=== PATIENT | female | born 1955 | race Caucasian/White ===

== ENCOUNTER 2017-06-12 09:36 | Day surgery (SDC) | payer BC ==
[~2017-06-12 09:36] MED LIST: Lactated Ringers 1,000 ML IV SCH; Lidocaine 1% 4 ML ONE; Lidocaine 1%/Sod Bicarbonate in NS 8.4% 1 ML Syringe PRN; Midazolam 1 MG/ML 2 ML SDV ONE; Ondansetron 4 MG/2 ML SDV ONE; Propofol 200 MG/20 ML SDV ONE; Rocuronium 50 MG/5 ML Vial ONE; Sodium Chloride 0.9% 10 ML Syringe FLUSH PRN; fentaNYL 250 MCG/5 ML SDV ONE
--- NOTE | 2017-06-12 11:05 | PCM.PREANE ---
Preanesthetic Assessment - Anesthesia/Transfusion/Family Hx Anesthesia History: Prior Anesthesia Without Reaction Family History of Anesthesia Reaction: No Transfusion History: Prior Transfusion Without Reaction - Review of Systems General: No Symptoms Pulmonary: No Symptoms Cardiovascular: No Symptoms Gastrointestinal: Abdominal Pain (because of gall bladder) Neurological: No Symptoms, Other (headache today above left eye) Other: Reports: Thyroid Problems, Sinus Problem (nasal surgery), Depression, Anxiety - Physical Assessment NPO Status Date: 06/11/17 (sip with pills this am) NPO Status Time: 19:00 O2 Sat by Pulse Oximetry: 94 Respiratory Rate: 16 Vital Signs: Last Vital Signs Temp 97.8 F 06/12/17 09:40 Pulse 72 06/12/17 09:40 Resp 16 06/12/17 09:40 BP 116/76 06/12/17 09:40 Pulse Ox 94 L 06/12/17 09:40 Height: 5 ft 5 in Weight: 81.647 kg ASA Class: 2 Mental Status: Alert & Oriented x3 Airway Class: Mallampati = 1 Dentition: Reports: Normal Dentition Thyro-Mental Finger Breadths: 3 Mouth Opening Finger Breadths: 3 ROM/Head Extension: Full Lungs: Clear to Auscultation, Normal Respiratory Effort Cardiovascular: Regular Rate, Regular Rhythm - Lab Values: 06/08 Hgb 14.2 P;t 247 Cr 0.8 BUN 10 Lytes WNL HGBHC1 6.1 - Imaging/EKG Impressions: 06/09/17 EKG SR 63 - Allergies Allergies/Adverse Reactions: Allergies Allergy/AdvReac Type Severity Reaction Status Date / Time No Known Allergies Allergy Verified 06/09/17 10:37 - Blood Blood Available: No - Acknowledgements Anesthesia Type Planned: General Anesthesia Pt an Appropriate Candidate for the Planned Anesthesia: Yes Alternatives and Risks of Anesthesia Discussed w Pt/Guardian: Yes Pt/Guardian Understands and Agrees with Anesthesia Plan: Yes PreAnesthesia Questionnaire HEENT History: Reports: Allergic Rhinitis Cardiovascular History: Reports: High Cholesterol Respiratory History: Reports: Asthma, Bronchitis, Recurrent Gastrointestinal History: Reports: Cholelithiasis, Gastritis, GERD, Other (See Below) Other Gastrointestinal History: Biliary colic, diarrhea, abdominal pain, internal hemorrhoids, throbosed external hemorrhoids Genitourinary History: Reports: Urinary Incontinence, UTI, Recurrent Other Genitourinary History: Dysuria, overactive bladder 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 (See Below) Other OB/BYN History: Pelvic pain Musculoskeletal History: Reports: Other (See Below) Other Musculoskeletal History: Right wrist pain, right fibula fracture, right ankle sprain Neurological History: Reports: None Psychiatric History: Reports: Bipolar Endocrine/Metabolic History: Reports: Hypothyroidism, Obesity/BMI 30+, Other ( See Below) Other Endocrine/Metabolic History: Elevated fasting glucose Hematologic History: Reports: None Immunologic History: Reports: None Oncologic (Cancer) History: Reports: None Dermatologic History: Reports: None - Infectious Disease History Infectious Disease History: Reports: C-Difficile - Past Surgical History Head Surgeries/Procedures: Reports: None HEENT Surgical History: Reports: Cataract Surgery, Naso-Sinus Surgery Cardiovascular Surgical History: Reports: None Respiratory Surgical History: Reports: None GI Surgical History: Reports: Colonoscopy Female Surgical History: Reports: Tubal Ligation Endocrine Surgical History: Reports: None Neurological Surgical History: Reports: None Dermatological Surgical History: Reports: None - SUBSTANCE USE Smoking Status *Q: Never Smoker Tobacco Use Within Last Twelve Months: No Second Hand Smoke Exposure: No Days Per Week of Alcohol Use: 0 Recreational Drug Use History: No - HOME MEDS Home Medications: Home Meds Cholecalciferol (Vitamin D3) [Vitamin D3] 1,000 units PO DAILY 05/28/14 [History ] FLUoxetine [PROzac] 30 mg PO DAILY 05/28/14 [History] Simvastatin [Zocor] 20 mg PO BEDTIME 05/28/14 [History] lamoTRIgine 100 mg PO DAILY 05/28/14 [History] Cranberry Conc/Ascorbic Acid [Cranberry Urinary Comfort Sfgl] 2 cap PO DAILY [History] Esomeprazole Magnesium [Nexium 24Hr] 20 mg PO DAILY 10/11/16 [History] Fluticasone Propionate 1 spray NASBOTH ASDIRECTED 10/11/16 [History] Loratadine [Claritin] 10 mg PO DAILY 10/11/16 [History] Melatonin 3 mg PO BEDTIME 10/11/16 [History] Mirabegron [Myrbetriq] 25 mg PO DAILY 10/11/16 [History] Multivitamin [Multivitamins] 2 tab PO DAILY 10/11/16 [History] Albuterol Sulfate [Proair Respiclick] 1 - 2 puff IH Q4H PRN 06/09/17 [History] Ipratropium/Albuterol Sulfate [Iprat-Albut 0.5-3(2.5) mg/3 ml] 3 ml IH Q6H PRN 06/09/17 [History] Levothyroxine Sodium [Levoxyl] 75 mcg PO DAILY 06/09/17 [History] Montelukast Sodium [Singulair] 10 mg PO DAILY 06/09/17 [History] - CURRENT (IN HOUSE) MEDS Current Meds: Current Medications Lactated Ringer's (Ringers, Lactated) 1,000 mls @ 125 mls/hr IV ASDIRECTED USMAN Stop: 06/12/17 23:00 Last Admin: 06/12/17 10:10 Dose: 125 mls/hr Lidocaine/Sodium Bicarbonate (Buffered Lidocaine 1% In Ns 8.4%) 0.25 ml .XX ONETIME PRN PRN Reason: Prior to IV Start Stop: 06/12/17 18:00 Last Admin: 06/12/17 10:09 Dose: 0.25 ml Sodium Chloride (Saline Flush) 10 ml FLUSH ASDIRECTED PRN PRN Reason: Keep Vein Open Stop: 06/12/17 18:00 Discontinued Medications Fentanyl (Sublimaze) Confirm Administered Dose 250 mcg .ROUTE .STK-MED ONE Stop: 06/12/17 08:07 Lidocaine HCl (Xylocaine-Mpf 1%) Confirm Administered Dose 4 mls @ as directed .ROUTE .STK-MED ONE Stop: 06/12/17 08:07 Midazolam HCl (Versed 1 Mg/Ml) Confirm Administered Dose 2 mg .ROUTE .STK-MED ONE Stop: 06/12/17 08:07 Ondansetron HCl (Zofran) Confirm Administered Dose 4 mg .ROUTE .STK-MED ONE Stop: 06/12/17 08:07 Propofol (Diprivan 20 Ml) Confirm Administered Dose 200 mg .ROUTE .STK-MED ONE Stop: 06/12/17 08:07 Rocuronium [place] (Zemuron) Confirm Administered Dose 50 mg .ROUTE .STK-MED ONE Stop: 06/12/17 08:07
[2017-06-12] MEDS ORDERED: Bupivacaine 0.5%/EPINEPHrine 1:200,000 50 ML MDV ONE (11:28)
[2017-06-12] MEDS ORDERED: Lidocaine 1% with EPINEPHrine 1:100,000 20 ML MDV ONE (11:28)
[2017-06-12] MEDS ORDERED: fentaNYL 100 MCG/2 ML SDV ONE (12:05)
[2017-06-12] MEDS ORDERED: fentaNYL 100 MCG/2 ML SDV IVPUSH ONE (12:08)
[2017-06-12] MEDS ORDERED: Metoclopramide 10 MG/2 ML SDV ONE (13:27)
[2017-06-12] MEDS ORDERED: Neostigmine Methylsulfate 10 MG/10 ML MDV ONE (13:27)
[2017-06-12] MEDS ORDERED: Ondansetron 4 MG/2 ML SDV ONE (13:27)
[2017-06-12] MEDS ORDERED: Glycopyrrolate 0.2 MG/ML SDV ONE (13:27)
[2017-06-12] MEDS ORDERED: Lactated Ringers 1,000 ML ONE (13:30)
[2017-06-12] MEDS ORDERED: Propofol 200 MG/20 ML SDV ONE (13:31)
[2017-06-12] MEDS ORDERED: Haloperidol Lactate 5 MG/ML SDV IVPUSH ONE (13:51)
[2017-06-12] MEDS ORDERED: fentaNYL 100 MCG/2 ML SDV IVPUSH PRN (13:51)
--- NOTE | 2017-06-12 13:53 | PCM.POSTAN ---
POST ANESTHESIA ASSESSMENT - MENTAL STATUS Mental Status: Somnolent - VITAL SIGNS Pulse Rate: 97 SaO2: 94 Resp Rate: 11 Blood Pressure: 134/60 Temperature: 97.1 C - RESPIRATORY Respiratory Status: Respiratory Rate WNL, Airway Patent, O2 Saturation Stable, Supplemental Oxygen - CARDIOVASCULAR CV Status: Pulse Rate WNL, Blood Pressure Stable - GASTROINTESTINAL GI Status: No Symptoms - PAIN Pain Score: 0 - POST OP HYDRATION Hydration Status: Adequate & Stable
--- NOTE | 2017-06-12 13:55 | PCM.OPNOTE ---
- General Post-Op/Procedure Note Date of Surgery/Procedure: 06/12/17 Operative Procedure(s): Laparoscopic gallbladder biopsy Findings: Hard, densely scarred contracted gallbladder, and contracted gallbladder bed with dense adherence of the omentum to the body of the gallbladder, suspicious for gallbladder carcinoma. Adhesions between the sigmoid and omentum in the left lower quadrant obscuring visualization of the ovaries. Pre Op Diagnosis: Biliary colic secondary to chronic cholecystitis Post-Op Diagnosis: Chronic cholecystitis Primary Surgeon: Dandy Nye Pathology: Biopsy of the dome of gallbladder EBL in mLs: 2 Complications: None Condition: Good Free Text/Narrative:: After adequate general endotracheal tube anesthesia was obtained the patient's abdomen was prepped and draped sterilely for a laparoscopic cholecystectomy. After local analgesia was given a supraumbilical incision was made with a 15 blade through the skin into the subcutaneous tissues. This incision was deepened with Metzenbaum scissors to the linea alba just above the umbilicus. The linea alba was sharply divided for about 1.5 cm to allow insertion of the 12 mm camera port. CO2 pneumoperitoneum was obtained after safe entry. Exploration revealed the findings above. I placed 2--5 mm working ports next with one in the subxiphoid area and one below the subcostal margin. I used the alligator forceps and grasped a portion of the dome of the gallbladder which was quite firm and then used the hot Endo scissors to biopsy the gallbladder fundus. The specimen was placed in a bag and removed through the umbilicus. The biopsy area was hemostatic. There was no bile leak from the biopsy site. I was concerned about the possibility of this being a gallbladder cancer, because of its firmness and the stellate-like contracted nature of the gallbladder bed along with the dense adherence of the omentum and possibly colon to the gallbladder I then tried to inspect the pelvic organs per the patient's request but was unable to safely do so because of the adhesions between the sigmoid colon and the omentum to the abdominal wall and pelvis. There were no obvious metastatic peritoneal implants seen. I then decannulated the abdomen under direct vision with no bleeding from the port sites. The camera port site was closed with an 0 Vicryl [id number] suture. Additional local analgesia was given at each port site. The subcutaneous tissues and skin were closed with Vicryl as well. Steri-Strips and gauze were used for the dressing. Road Traffic Controller photographs were taken for the patient and for the medical record. There were no procedural complications.
[2017-06-12 16:22] VITALS: BP 125/79
--- NOTE | 2017-06-13 07:21 | PCM48HPAN ---
Post Anesthesia Note - EVALUATION WITHIN 48HRS OF ANESTHETIC Vital Signs in Normal Range: Yes Patient Participated in Evaluation: Yes Respiratory Function Stable: Yes Airway Patent: Yes Cardiovascular Function Stable: Yes Hydration Status Stable: Yes Pain Control Satisfactory: Yes Nausea and Vomiting Control Satisfactory: Yes Mental Status Recovered: Yes - COMMENTS/OBSERVATIONS Free Text/Narrative:: Patient is comfortable with no apparent anesthesia related complications at this time.
== END 2017-06-12 16:18 | disposition home or self-care (01) ==
LOC: JD.SDS 09:36
PROVIDERS: ATTEND Surgery
DX: C23 Malignant neoplasm of gallbladder (principal); K81.1 Chronic cholecystitis; J45.909 Unspecified asthma, uncomplicated; F31.9 Bipolar disorder, unspecified; K21.9 Gastro-esophageal reflux disease without esophagitis; E03.9 Hypothyroidism, unspecified; Z79.899 Other long term (current) drug therapy; Z98.890 Other specified postprocedural states
CPT/HCPCS: 47579; J2250; J2405; J2710; J2765; J3010; J3490; J7120; 00790; J2704

== ENCOUNTER 2017-09-10 18:10 | Emergency (ER) | payer BC ==
[2017-09-10 18:24] VITALS: BP 167/84
[2017-09-10] MEDS ORDERED: Sodium Chloride 0.9% 1,000 ML IV ONE (19:23)
[2017-09-10] MEDS ORDERED: Ondansetron 4 MG/2 ML SDV IVPUSH ONE (20:15)
--- NOTE | 2017-09-10 20:19 | EDM.PDOC ---
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 She states that she has had nausea on and off since May, and is currently on 4 medications for it prescribed by Dr. Rowe. She states that she had dry heaves on 09/04/2017, and 09/05/2017. She saw Dr. Rowe on 09/06/2017, and was told to go to the ER for IV fluid if her symptoms continued. She went to the [facility] on , 2016 and 09/08/2017, where she received IV fluid. She states that she did not have any dry heaves yesterday or today, however, she has had dizziness both yesterday and today, worse if she is upright. No recent fever, constipation, diarrhea, or urinary symptoms. She states that she has had similar symptoms, less severe, many times in the past. The patient received an influenza vaccine in June 2017. The patient's PCP is Candy Farah. - Related Data Allergies Allergy/AdvReac Type Severity Reaction Status Date / Time No Known Allergies Allergy Verified 09/10/17 18:18 Home Meds: Home Meds Cholecalciferol (Vitamin D3) [Vitamin D3] 1,000 units PO DAILY 05/28/14 [History ] FLUoxetine [PROzac] 30 mg PO DAILY 05/28/14 [History] Simvastatin [Zocor] 20 mg PO BEDTIME 05/28/14 [History] lamoTRIgine 100 mg PO DAILY 05/28/14 [History] Cranberry Conc/Ascorbic Acid [Cranberry Urinary Comfort Sfgl] 2 cap PO DAILY [History] Esomeprazole Magnesium [Nexium 24Hr] 20 mg PO DAILY 10/11/16 [History] Fluticasone Propionate 1 spray NASBOTH ASDIRECTED 10/11/16 [History] Loratadine [Claritin] 10 mg PO DAILY 10/11/16 [History] Melatonin 3 mg PO BEDTIME 10/11/16 [History] Mirabegron [Myrbetriq] 25 mg PO DAILY 10/11/16 [History] Multivitamin [Multivitamins] 2 tab PO DAILY 10/11/16 [History] Albuterol Sulfate [Proair Respiclick] 1 - 2 puff IH Q4H PRN 06/09/17 [History] Ipratropium/Albuterol Sulfate [Iprat-Albut 0.5-3(2.5) mg/3 ml] 3 ml IH Q6H PRN 06/09/17 [History] Levothyroxine Sodium [Levoxyl] 75 mcg PO DAILY 06/09/17 [History] Montelukast Sodium [Singulair] 10 mg PO DAILY 06/09/17 [History] Past Medical History HEENT History: Reports: Allergic Rhinitis Cardiovascular History: Reports: High Cholesterol Respiratory History: Reports: Asthma Gastrointestinal History: Reports: GERD Genitourinary History: Reports: Urinary Incontinence (stress incontinence) Musculoskeletal History: Reports: Fracture (right fibula) Psychiatric History: Reports: Anxiety, Bipolar, Depression Endocrine/Metabolic History: Reports: Hypothyroidism, Obesity/BMI 30+ Oncologic (Cancer) History: Reports: Other (See Below) (Gallbladder, stage IV) - Infectious Disease History Infectious Disease History: Reports: C-Difficile - Past Surgical History HEENT Surgical History: Reports: Cataract Surgery, Naso-Sinus Surgery (deviated septum), Oral Surgery ([place] teeth extraction) Cardiovascular Surgical History: Reports: Other (See Below) (Left Port-A-Cath) GI Surgical History: Reports: Colonoscopy, Other (See Below) (Exploratory laparoscopy) Female Surgical History: Reports: Tubal Ligation Social & Family History - Tobacco Use Smoking Status *Q: Never Smoker Second Hand Smoke Exposure: No - Caffeine Use Caffeine Use: Reports: None - Alcohol Use Alcohol Use History: No Days Per Week of Alcohol Use: 0 - Recreational Drug Use Recreational Drug Use: No - Living Situation & Occupation Living situation: Reports: , with Significant Other (Boyfriend) Occupation: Retired ED ROS GENERAL - Review of Systems Review Of Systems: See Below Constitutional: Reports: No Symptoms. Denies: Fever HEENT: Reports: No Symptoms Respiratory: Reports: No Symptoms Cardiovascular: Reports: No Symptoms Endocrine: Reports: No Symptoms GI/Abdominal: Reports: Nausea. Denies: Constipation, Diarrhea : Reports: No Symptoms. Denies: Dysuria Musculoskeletal: Reports: No Symptoms Skin: Reports: No Symptoms Neurological: Reports: Dizziness Psychiatric: Reports: No Symptoms Hematologic/Lymphatic: Reports: No Symptoms Immunologic: Reports: No Symptoms ED EXAM, DIZZINESS - Physical Exam Exam: See Below Exam Limited By: No Limitations General Appearance: Alert, WD/WN, No Apparent Distress Eye Exam: Bilateral Eye: Normal Inspection Ears: Normal External Exam, Normal Canal, Hearing Grossly Normal, Normal TMs Nose: Normal Inspection, Normal Mucosa, No Blood Throat/Mouth: Normal Inspection, Normal Lips, Normal Voice, No Airway Compromise Head Exam: Atraumatic, Normocephalic Neck: Normal Inspection, Full Range of Motion Respiratory/Chest: No Respiratory Distress, Lungs Clear, Normal Breath Sounds, No Accessory Muscle Use Cardiovascular: Normal Peripheral Pulses, Regular Rate, Rhythm, No Gallop, No JVD, No Murmur, No Rub GI/Abdominal: Normal Bowel Sounds, Soft, Non-Tender, No Organomegaly, No Distention, No Abnormal Bruit, No Mass, Other (Obese) (Female) Exam: Deferred Rectal (Female) Exam: Deferred Neurological: Alert, CN II-XII Intact, No Motor/Sensory Deficits, Oriented x 3 Back Exam: Normal Inspection, Full Range of Motion, NT Extremities: Normal Inspection, Normal Range of Motion, No Pedal Edema, Normal Capillary Refill Psychiatric: Normal Affect, Anxious Skin Exam: Warm, Dry, Intact, Normal Color, No Rash EKG INTERPRETATION EKG Date: 09/10/17 Time: 19:31 Rhythm: NSR Rate (Beats/Min): 87 [place]: Normal P-Wave: Present QRS: Normal ST-T: Normal QT: Normal Comparison: No Change (06/09/2017) Course - Vital Signs Last Recorded V/S: Last Vital Signs Temp 36.2 C 09/10/17 18:18 Pulse 94 09/10/17 18:18 Resp 16 09/10/17 18:18 BP 167/84 H 09/10/17 18:18 Pulse Ox 97 09/10/17 18:18 Orthostatic Blood Pressure [ 156/94 Standing] Orthostatic Blood Pressure [ 154/89 Sitting] Orthostatic Blood Pressure [ 136/82 Supine] - Orders/Labs/Meds Orders: Active Orders 24 hr Category Date Time Status EKG Documentation Completion [RC] STAT Care 09/10/17 19:21 Active Orthostatic Vital Signs [RC] STAT Care 09/10/17 19:21 Active Ang Chest [CT] Stat Exams 09/10/17 20:17 Taken CULTURE BLOOD [BC] Stat Lab 09/10/17 19:45 Received CULTURE BLOOD [BC] Stat Lab 09/10/17 19:50 Received Blood Culture x2 Reflex Set [OM.PC] Stat Oth 09/10/17 19:23 Ordered Labs: Laboratory Tests 09/10/17 09/10/17 09/10/17 Range/Units 16:46 16:46 16:46 WBC 6.37 (3.98-10.04) K/mm3 RBC 3.44 L (3.98-5.22) M/mm3 Hgb 10.4 L (11.2-15.7) gm/L Hct 31.9 L (34.1-44.9) % MCV 92.7 (79.4-94.8) fl MCH 30.2 (25.6-32.2) pg MCHC 32.6 (32.2-35.5) g/dl RDW Std Deviation 49.6 H (36.4-46.3) fL Plt Count 117 L (182-369) K/mm3 MPV 10.8 (9.4-12.3) fl Neutrophils % (Manual) 59 (40-60) % Band Neutrophils % 0 (0-10) % Lymphocytes % (Manual) 40 (20-40) % Atypical Lymphs % 0 % Monocytes % (Manual) 1 L (2-10) % Eosinophils % (Manual) 0 L (0.7-5.8) % Basophils % (Manual) 0 L (0.1-1.2) Platelet Estimate Decreased Plt Morphology Comment See note Anisocytosis 1+ slight Macrocytosis 1+ slight Ovalocytes 1+ slight RBC Morph Comment Not Reportable PT 9.7 (8.0-13.0) SECONDS INR 0.90 APTT 30 (22-36) SECONDS D-Dimer, Quantitative 0.88 H (0.19-0.59) mg/L Sodium 143 (136-145) mEq/L Potassium 3.9 (3.5-5.1) mEq/L Chloride 104 (98-107) mEq/L Carbon Dioxide 30 (21-32) mEq/L Anion Gap 12.9 (5-15) BUN 19 H (7-18) mg/dL Creatinine 0.8 (0.55-1.02) mg/dL Est Cr Clr Drug Dosing 64.77 mL/min Estimated GFR (MDRD) > 60 (>60) mL/min BUN/Creatinine Ratio 23.8 H (14-18) Glucose 123 H (80-115) mg/dL Calcium 8.1 L (8.5-10.1) mg/dL Magnesium 1.7 L (1.8-2.4) mg/dl Total Bilirubin 0.1 L (0.2-1.0) mg/dL AST 8 L (15-37) U/L ALT 24 (14-59) U/L Alkaline Phosphatase 62 (46-116) U/L Troponin I < 0.017 (0.00-0.056) ng/mL Total Protein 5.9 L (6.4-8.2) g/dl Albumin 3.1 L (3.4-5.0) g/dl Globulin 2.8 gm/dL Albumin/Globulin Ratio 1.1 (1-2) Urine Color (Yellow) Urine Appearance (Clear) Urine pH (5.0-8.0) Ur Specific [place] (1.005-1.030) Urine Protein (Negative) Urine Glucose (UA) (Negative) Urine Ketones (Negative) Urine Occult Blood (Negative) Urine Nitrite (Negative) Urine Bilirubin (Negative) Urine Urobilinogen (0.2-1.0) Ur Leukocyte Esterase (Negative) Urine RBC (0-5) /hpf Urine WBC (0-5) /hpf Ur Epithelial Cells (0-5) /hpf Urine Bacteria (FEW) /hpf Urine Mucus (FEW) /hpf 09/10/17 Range/Units 19:40 WBC (3.98-10.04) K/mm3 RBC (3.98-5.22) M/mm3 Hgb (11.2-15.7) gm/L Hct (34.1-44.9) % MCV (79.4-94.8) fl MCH (25.6-32.2) pg MCHC (32.2-35.5) g/dl RDW Std Deviation (36.4-46.3) fL Plt Count (182-369) K/mm3 MPV (9.4-12.3) fl Neutrophils % (Manual) (40-60) % Band Neutrophils % (0-10) % Lymphocytes % (Manual) (20-40) % Atypical Lymphs % % Monocytes % (Manual) (2-10) % Eosinophils % (Manual) (0.7-5.8) % Basophils % (Manual) (0.1-1.2) Platelet Estimate Plt Morphology Comment Anisocytosis Macrocytosis Ovalocytes RBC Morph Comment PT (8.0-13.0) SECONDS INR APTT (22-36) SECONDS D-Dimer, Quantitative (0.19-0.59) mg/L Sodium (136-145) mEq/L Potassium (3.5-5.1) mEq/L Chloride (98-107) mEq/L Carbon Dioxide (21-32) mEq/L Anion Gap (5-15) BUN (7-18) mg/dL Creatinine (0.55-1.02) mg/dL Est Cr Clr Drug Dosing mL/min Estimated GFR (MDRD) (>60) mL/min BUN/Creatinine Ratio (14-18) Glucose (80-115) mg/dL Calcium (8.5-10.1) mg/dL Magnesium (1.8-2.4) mg/dl Total Bilirubin (0.2-1.0) mg/dL AST (15-37) U/L ALT (14-59) U/L Alkaline Phosphatase (46-116) U/L Troponin I (0.00-0.056) ng/mL Total Protein (6.4-8.2) g/dl Albumin (3.4-5.0) g/dl Globulin gm/dL Albumin/Globulin Ratio (1-2) Urine Color Light yellow (Yellow) Urine Appearance Clear (Clear) Urine pH 7.0 (5.0-8.0) Ur Specific [place] 1.015 (1.005-1.030) Urine Protein Negative (Negative) Urine Glucose (UA) Negative (Negative) Urine Ketones Negative (Negative) Urine Occult Blood Negative (Negative) Urine Nitrite Negative (Negative) Urine Bilirubin Negative (Negative) Urine Urobilinogen 0.2 (0.2-1.0) Ur Leukocyte Esterase Negative (Negative) Urine RBC Not seen (0-5) /hpf Urine WBC 0-5 (0-5) /hpf Ur Epithelial Cells 0-5 (0-5) /hpf Urine Bacteria Not seen (FEW) /hpf Urine Mucus Not seen (FEW) /hpf Meds: Medications Discontinued Medications Generic Name Dose Route Start Last Admin Trade Name Freq PRN Reason Stop Dose Admin Heparin Sodium (Porcine) 500 units 09/10/17 22:25 09/10/17 22:29 Heparin Lock Flush 100 Units/Ml FLUSH 09/10/17 22:26 500 units ASDIRECTED ONE Administration Sodium Chloride 1,000 mls @ 999 mls/hr 09/10/17 19:23 09/10/17 20:04 Normal Saline IV 09/10/17 20:23 999 mls/hr ONETIME ONE Administration Sodium Chloride 100 mls @ 80 mls/hr 09/10/17 21:00 09/10/17 21:17 Normal Saline IV 80 mls/hr ASDIRECTED USMAN Administration Iopamidol 100 ml 09/10/17 20:46 09/10/17 21:17 Isovue-370 (76%) IVPUSH 09/10/17 20:47 60 ml ONETIME ONE Administration Ondansetron HCl 4 mg 09/10/17 20:15 09/10/17 20:25 Zofran IVPUSH 09/10/17 20:16 4 mg ONETIME ONE Administration Sodium Chloride 10 ml 09/10/17 20:46 09/10/17 21:16 Saline Flush FLUSH 10 ml ONETIME PRN Administration IV FLUSH - Re-Assessments/Exams Free Text/Narrative Re-Assessment/Exam: 09/10/17 20:17 The patient is not orthostatic. Her D-dimer has returned mildly elevated at 0.88. Her renal function is normal. I will order a CT angiogram of the chest to evaluate for PE. 09/10/17 22:09 CT angiogram of the chest is read by [facility] as "Normal chest CTA. No pulmonary embolism." 09/10/17 22:17 Test results discussed with the patient and her significant other. Thomas's workup is unremarkable, and does not explain the cause of the patient's dizziness. I suspect that the patient is suffering from anxiety. The patient states that she will be following up with her Oncologist, Dr. Rowe, tomorrow. I encouraged her to take thomas's test results with her. Departure - Departure Time of Disposition: 22:18 Disposition: Home, Self-Care 01 Condition: Good Clinical Impression: Dizziness of unknown cause - Discharge Information Instructions: Dizziness Referrals: Candy Farah PA [Primary Care Provider] - Leslie Rowe MD [Ordering Only Provider] - Forms: ED Department Discharge Additional Instructions: You were seen in the emergency room for dizziness and recurrent nausea. Workup in the ER included blood work, 2 sets of blood cultures, a urinalysis, an ECG, an influenza swab, a CT angiogram of your chest, and positional blood pressure checks. Your entire workup was unremarkable. You do not have an infection. You are not severely anemic. You do not have any electrolyte abnormalities. You are not dehydrated or intravascularly depleted. You have not had a heart attack, and your ECG was normal. You do not have a blood clot in your lungs. The cause of your dizziness is not known, but is MOST LIKELY due to anxiety. Continue to take your usual medications as prescribed. Follow-up with your Oncologist, Dr. Rowe, at your previously scheduled appointment tomorrow, 09/11/2017. We recommend that you bring these discharge instructions with you to your appointment. If any other problems, please do not hesitate to return to the ER. - My Orders Last 24 Hours: My Active Orders 09/10/17 19:21 EKG Documentation Completion [RC] STAT Orthostatic Vital Signs [RC] STAT 09/10/17 19:23 Blood Culture x2 Reflex Set [OM.PC] Stat 09/10/17 19:45 CULTURE BLOOD [BC] Stat 09/10/17 19:50 CULTURE BLOOD [BC] Stat 09/10/17 20:17 Ang Chest [CT] Stat - Assessment/Plan Last 24 Hours: My Active Orders 09/10/17 19:21 EKG Documentation Completion [RC] STAT Orthostatic Vital Signs [RC] STAT 09/10/17 19:23 Blood Culture x2 Reflex Set [OM.PC] Stat 09/10/17 19:45 CULTURE BLOOD [BC] Stat 09/10/17 19:50 CULTURE BLOOD [BC] Stat 09/10/17 20:17 Ang Chest [CT] Stat
[2017-09-10] MEDS ORDERED: Sodium Chloride 0.9% 10 ML Syringe FLUSH PRN (20:46)
[2017-09-10] MEDS ORDERED: Iopamidol 755 Mg/ML 100 ML Bottle IVPUSH ONE (20:46)
[2017-09-10] MEDS ORDERED: Sodium Chloride 0.9% 100 ML IV SCH (21:00)
--- NOTE | 2017-09-12 11:01 | CT ---
CT chest Technique: Multiple axial sections were obtained from above the lung apices inferiorly through the lung bases. Intravenous contrast was utilized. Study performed as a pulmonary angiogram protocol. Comparison: Prior chest x-ray of 01/11/17, no prior chest CT examination. Findings: Pulmonary arteries are well-opacified. No filling defects are seen to indicate pulmonary embolism. Mediastinum and hilar regions show no adenopathy or mass. No pericardial thickening is seen. Infusion port is seen. Lungs are clear. No pleural effusions are seen. Bone window settings were reviewed which show mild degenerative change within the spine. Impression: 1. No findings of pulmonary embolism. 2. Slight degenerative change is incidentally noted within the spine. 3. Nothing acute is appreciated. Diagnostic code #2 I agree with preliminary report issued by Mister Bellad ([facility] report finalized on 09/10/17, 10:31 PM Central Time)
== END 2017-09-10 22:35 | disposition home or self-care (01) ==
LOC: JD.ED 18:10
DX: R42 Dizziness and giddiness (principal); E78.00 Pure hypercholesterolemia, unspecified; C23 Malignant neoplasm of gallbladder; J45.909 Unspecified asthma, uncomplicated; Z79.899 Other long term (current) drug therapy
CPT/HCPCS: 36415; 71275; 80053; 81001; 83735; 84484; 85025; 85379; 85610; 85730; 87040; 87804; 93005; 96361; 96374; 99285; J1642; J2405; J7030; J7040; J7050; Q9967; 93010; 99284